=== PATIENT | female | born 1965 | race African-American/Black ===

== ENCOUNTER 2017-10-06 09:33 | Inpatient (IN) | payer BC, OTHER ==
[2017-10-06 10:00] VITALS: BMI 27.8
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
[2017-10-06] MEDS ORDERED: chlordiazePOXIDE HCL 25 MG CAPSULE PO PRN (12:28)
[2017-10-06] MEDS ORDERED: MAGNESIUM HYDROX 2400MG/30ML ORAL SUSPENSION 30 ML CUP PO PRN (12:28)
[2017-10-06] MEDS ORDERED: LOPERAMIDE HCL 2 MG CAPSULE PO PRN (12:28)
[2017-10-06] MEDS ORDERED: MENTHOL/PHENOL 1 EACH UD MM PRN (12:28)
[2017-10-06] MEDS ORDERED: guaiFENesin/D-METHORPHAN HB 10 ML UNIT-DOSE CUPS PO PRN (12:28)
[2017-10-06] MEDS ORDERED: hydrOXYzine PAMOATE 50 MG CAPSULE (FP) PO PRN (12:28)
[2017-10-06] MEDS ORDERED: P-EPHED 60MG/TRIPROLIDI 2.5MG TABLET PO PRN (12:28)
[2017-10-06] MEDS ORDERED: MAGNESIUM CITRATE 300 ML BOTTLE PO PRN (12:28)
[2017-10-06] MEDS ORDERED: MAG HYDROX/AL HYDROX/SIMETH 30 ML UNIT-DOSE CUP PO PRN (12:28)
[2017-10-06] MEDS ORDERED: chlordiazePOXIDE HCL 25 MG CAPSULE PO ONE (12:50)
[2017-10-06] MEDS: IBUPROFEN 400 MG TABLET (FP) PO PRN (14:01)
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
[2017-10-06] MEDS: chlordiazePOXIDE HCL 25 MG CAPSULE PO SCH ×2 (17:14→22:15)
[2017-10-06] MEDS: ACETAMINOPHEN 325 MG TABLET (FP) PO PRN (17:16)
[2017-10-06] MEDS: ALBUTEROL SO4 18 GM HFA INHALER IH PRN (20:47)
[2017-10-06] MEDS: THIAMINE HCL 100 MG TABLET (FP) PO SCH (22:14)
[2017-10-06] MEDS: ZOLPIDEM TARTRATE 5 MG TABLET PO PRN (22:15)
[2017-10-06 22:43] LABS: URINE APPEARANCE CLEAR; URINE BILIRUBIN NEGATIVE (NEGATIVE); URINE BLOOD 1+ (NEGATIVE); URINE COLOR YELLOW; URINE GLUCOSE (UA) NEGATIVE (NEGATIVE); URINE KETONE NEGATIVE (NEGATIVE); URINE LEUK ESTERASE NEGATIVE (NEGATIVE); URINE NITRITE NEGATIVE (NEGATIVE); URINE PROTEIN NEGATIVE (NEGATIVE); URINE UROBILINOGEN 4.0 E.U/dl mg/dL (0.2-1.0)
[2017-10-06 22:56] LABS: EPI CELLS RARE /HPF (FEW); URINE MUCUS RARE
[2017-10-07] MEDS: chlordiazePOXIDE HCL 25 MG CAPSULE PO SCH ×5 (05:43→23:16)
[2017-10-07] MEDS ORDERED: LEVOTHYROXINE NA 100 MCG TABLET (FP) ONE (05:43)
[2017-10-07] MEDS ORDERED: LEVOTHYROXINE NA 25 MCG TABLET (FP) ONE (05:43)
[2017-10-07] MEDS: IBUPROFEN 400 MG TABLET (FP) PO PRN (05:47)
[2017-10-07] MEDS: LEVOTHYROXINE 25 MCG, LEVOTHYROXINE 100 MCG PO SCH (06:38)
--- NOTE | 2017-10-07 08:37 | PN ---
S CIWA - CIWA Score Nausea/Vomitin-Mild Nausea/No Vomiting Muscle Tremors: 4-Moderate,w/Arms Extend Anxiety: 4-Mod. Anxious/Guarded Agitation: 4-Moderately Restless Paroxysmal Sweats: 1-Minimal Palms Moist Orientation: 0-Oriented Tacttile Disturbances: 2-Mild Itch/Numbness/Burn Auditory Disturbances: 0-None Visual Disturbances: 0-None Headache: 1-Very Mild CIWA-Ar Total Score: 17 BHS Progress Note (SOAP) Subjective: sweat gi distress tremor anxiety irritable Objective: 10/07/17 08:36 Vital Signs Temperature 95.9 F L 10/07/17 06:00 Pulse Rate 56 L 10/07/17 06:00 Respiratory Rate 18 10/07/17 06:00 Blood Pressure 128/72 10/07/17 06:00 O2 Sat by Pulse Oximetry (%) Laboratory Last Values Urine Color Yellow 10/06/17 20:00 Urine Appearance Clear 10/06/17 20:00 Urine pH 6.0 (5.0-8.0) 10/06/17 20:00 Ur Specific [place] 1.025 (1.001-1.035) 10/06/17 20:00 Urine Protein Negative (NEGATIVE) 10/06/17 20:00 Urine Glucose (UA) Negative (NEGATIVE) 10/06/17 20:00 Urine Ketones Negative (NEGATIVE) 10/06/17 20:00 Urine Blood 1+ (NEGATIVE) H 10/06/17 20:00 Urine Nitrite Negative (NEGATIVE) 10/06/17 20:00 Urine Bilirubin Negative (NEGATIVE) 10/06/17 20:00 Urine Urobilinogen 4.0 e.u/dl mg/dL (0.2-1.0) H 10/06/17 20:00 Ur Leukocyte Esterase Negative (NEGATIVE) 10/06/17 20:00 Urine WBC (Auto) 1 /hpf (3-5) 10/06/17 20:00 Urine RBC (Auto) 1 /hpf (0-3) 10/06/17 20:00 Ur Epithelial Cells Rare /HPF (FEW) 10/06/17 20:00 Urine Mucus Rare 10/06/17 20:00 lab noted Assessment: 10/07/17 08:36 withdrawal sx Plan: continue detox
[2017-10-07] MEDS: ESCITALOPRAM OXALATE 10 MG TABLET (FP) PO SCH (09:59)
[2017-10-07] MEDS ORDERED: LEVOTHYROXINE NA 125 MCG TABLET (FP) PO SCH (10:00)
[2017-10-07] MEDS ORDERED: PRENATAL VITAMINS W/ FOLIC ACID TABLET (FP) PO SCH (10:00)
[2017-10-07] MEDS: ACETAMINOPHEN 325 MG TABLET (FP) PO PRN (10:00)
[2017-10-07] MEDS ORDERED: MULTIVITAMINS THER W-MINERALS COMBO TABLET (FP) PO SCH (10:15)
[2017-10-07 10:22] LABS: HEMATOCRIT 32.4 % (32.4-45.2); HEMOGLOBIN 10.6 GM/dL (10.7-15.3); MCH 28.9 pg (25.7-33.7); MCHC 32.6 g/dl (32.0-36.0); MEAN CELL VOLUME 88.5 fl (80-96); MEAN PLT VOLUME 8.8 fl (7.5-11.1); PLATELET COUNT 295 K/MM3 (134-434); RBC 3.66 M/mm3 (3.60-5.2); WHITE BLOOD COUNT 5.6 K/mm3 (4.0-10.0)
[2017-10-07] MEDS: CALCIUM 250MG/VIT-D 125 UNITS 1 COMBO TABLET PO SCH (11:00)
[2017-10-07 11:02] LABS: CHLORIDE 106 mmol/L (98-107); POTASSIUM 5.2 mmol/L (3.5-5.1); SODIUM 142 mmol/L (136-145)
[2017-10-07 11:13] LABS: ALBUMIN 3.7 g/dl (3.4-5.0); ALK PHOS 59 U/L (45-117); ANION GAP 5 (8-16); BILIRUBIN,TOTAL 0.5 mg/dL (0.2-1.0); BLOOD UREA NITROGEN 19 mg/dL (7-18); CALCIUM 8.6 mg/dL (8.5-10.1); CO2 31 mmol/L (21-32); CREATININE 0.7 mg/dL (0.55-1.02); GLUCOSE,RANDOM 81 mg/dL (74-106); SGOT/AST 30 U/L (15-37); SGPT/ALT 29 U/L (12-78); TOT PROT 6.6 g/dl (6.4-8.2)
--- NOTE | 2017-10-07 11:44 | EKG ---
Test Reason : Blood Pressure : / mmHG Vent. Rate : 061 BPM Atrial Rate : 061 BPM P-R Int : 204 ms QRS Dur : 082 ms QT Int : 450 ms P-R-T Axes : 067 070 080 degrees QTc Int : 453 ms NORMAL SINUS RHYTHM NORMAL ECG NO PREVIOUS ECGS AVAILABLE Confirmed by VICTORINA SORTO, NORMA ([id number]) on 10/07/2017 11:44:23 AM Referred By: Confirmed By:NORMA PRAJAPATI MD
[2017-10-07] MEDS: THIAMINE HCL 100 MG TABLET (FP) PO SCH ×2 (23:00→23:16)
[2017-10-07] MEDS: ZOLPIDEM TARTRATE 5 MG TABLET PO PRN (23:18)
[2017-10-08] MEDS ORDERED: LEVOTHYROXINE NA 100 MCG TABLET (FP) ONE (04:21)
[2017-10-08] MEDS ORDERED: LEVOTHYROXINE NA 25 MCG TABLET (FP) ONE (04:21)
[2017-10-08] MEDS: chlordiazePOXIDE HCL 25 MG CAPSULE PO SCH ×2 (05:18→10:58)
[2017-10-08] MEDS: LEVOTHYROXINE 25 MCG, LEVOTHYROXINE 100 MCG PO SCH (07:54)
--- NOTE | 2017-10-08 09:58 | PN ---
[facility] CIWA - CIWA Score Nausea/Vomitin-No Nausea/No Vomiting Muscle Tremors: 3 Anxiety: 2 Agitation: 3 Paroxysmal Sweats: 3 Orientation: 0-Oriented Tacttile Disturbances: 0-None Auditory Disturbances: 0-None Visual Disturbances: 0-None Headache: 1-Very Mild CIWA-Ar Total Score: 12 S Progress Note (SOAP) Subjective: sweats irritable agitation Objective: 10/08/17 09:58 Vital Signs Temperature 96.4 F L 10/08/17 06:00 Pulse Rate 58 L 10/08/17 06:00 Respiratory Rate 18 10/08/17 06:00 Blood Pressure 126/71 10/08/17 06:00 O2 Sat by Pulse Oximetry (%) Laboratory Tests 10/06/17 10/06/17 10/07/17 12:00 20:00 06:00 WBC 5.6 RBC 3.66 Hgb 10.6 L Hct 32.4 MCV 88.5 MCH 28.9 MCHC 32.6 RDW 15.0 Plt Count 295 MPV 8.8 Sodium Potassium Chloride Carbon Dioxide Anion Gap BUN Creatinine Creat Clearance w eGFR Random Glucose Calcium Total Bilirubin AST ALT Alkaline Phosphatase Total Protein Albumin Urine Color Yellow Urine Appearance Clear Urine pH 6.0 Ur Specific [place] 1.025 Urine Protein Negative Urine Glucose (UA) Negative Urine Ketones Negative Urine Blood 1+ H Urine Nitrite Negative Urine Bilirubin Negative Urine Urobilinogen 4.0 e.u/dl H Ur Leukocyte Esterase Negative Urine WBC (Auto) 1 Urine RBC (Auto) 1 Ur Epithelial Cells Rare Urine Mucus Rare RPR Titer HIV 1&2 Antibody Screen Negative HIV P24 Antigen Negative 10/07/17 10/07/17 06:00 06:00 WBC RBC Hgb Hct MCV MCH MCHC RDW Plt Count MPV Sodium 142 Potassium 5.2 H Chloride 106 Carbon Dioxide 31 Anion Gap 5 L BUN 19 H Creatinine 0.7 Creat Clearance w eGFR > 60 Random Glucose 81 Calcium 8.6 Total Bilirubin 0.5 AST 30 ALT 29 Alkaline Phosphatase 59 Total Protein 6.6 Albumin 3.7 Urine Color Urine Appearance Urine pH Ur Specific [place] Urine Protein Urine Glucose (UA) Urine Ketones Urine Blood Urine Nitrite Urine Bilirubin Urine Urobilinogen Ur Leukocyte Esterase Urine WBC (Auto) Urine RBC (Auto) Ur Epithelial Cells Urine Mucus RPR Titer Nonreactive HIV 1&2 Antibody Screen HIV P24 Antigen aaox3 ambulating no acute distress Assessment: 10/08/17 09:58 withdrawal sx Plan: continue detox increase fluids
[2017-10-08] MEDS: ESCITALOPRAM OXALATE 10 MG TABLET (FP) PO SCH (10:58)
[2017-10-08] MEDS: CALCIUM 250MG/VIT-D 125 UNITS 1 COMBO TABLET PO SCH (10:58)
[2017-10-08] MEDS: MULTIVITAMINS THER W-MINERALS COMBO TABLET (FP) PO SCH (10:59)
[2017-10-08] MEDS: chlordiazePOXIDE 5 MG CAPSULE PO SCH ×2 (17:54→22:34)
[2017-10-08] MEDS: THIAMINE HCL 100 MG TABLET (FP) PO SCH (22:33)
[2017-10-08] MEDS: ALBUTEROL SO4 18 GM HFA INHALER IH PRN (22:33)
[2017-10-08] MEDS: ZOLPIDEM TARTRATE 5 MG TABLET PO PRN (22:34)
[2017-10-08] MEDS: IBUPROFEN 400 MG TABLET (FP) PO PRN (22:36)
[2017-10-09] MEDS: chlordiazePOXIDE 5 MG CAPSULE PO SCH ×2 (05:36→10:39)
[2017-10-09] MEDS ORDERED: LEVOTHYROXINE NA 100 MCG TABLET (FP) ONE (05:38)
[2017-10-09] MEDS ORDERED: LEVOTHYROXINE NA 25 MCG TABLET (FP) ONE (05:38)
[2017-10-09] MEDS: IBUPROFEN 400 MG TABLET (FP) PO PRN (05:39)
[2017-10-09] MEDS: LEVOTHYROXINE 25 MCG, LEVOTHYROXINE 100 MCG PO SCH (06:44)
[2017-10-09] MEDS: ESCITALOPRAM OXALATE 10 MG TABLET (FP) PO SCH (10:38)
[2017-10-09] MEDS: MULTIVITAMINS THER W-MINERALS COMBO TABLET (FP) PO SCH (10:39)
[2017-10-09] MEDS: CALCIUM 250MG/VIT-D 125 UNITS 1 COMBO TABLET PO SCH (10:40)
--- NOTE | 2017-10-09 14:21 | PN ---
S Progress Note (SOAP) Subjective: ALERT,IRRITABLE,ANXIOUS,INTERRUPTED SLEEP Objective: 10/09/17 14:19 Vital Signs Temperature 97.2 F L 10/09/17 07:06 Pulse Rate 55 L 10/09/17 07:06 Respiratory Rate 16 10/09/17 07:06 Blood Pressure 103/63 10/09/17 07:06 O2 Sat by Pulse Oximetry (%) Assessment: 10/09/17 14:20 WITHDRAWAL SYMPTOM Plan: WITHDRAWAL SYMPTOM,CONTINUE DETOX,DISCHARGE IN AM
[2017-10-09] MEDS ORDERED: FERROUS SO4 325 MG TABLET (FP) PO SCH (14:30)
[2017-10-09] MEDS: chlordiazePOXIDE HCL 10 MG CAPSULE PO SCH ×2 (17:57→22:39)
[2017-10-09 18:01] VITALS: BP 111/75; PULSE 58; TEMP 98.1
[2017-10-09] MEDS: THIAMINE HCL 100 MG TABLET (FP) PO SCH (22:39)
[2017-10-10] MEDS ORDERED: LEVOTHYROXINE NA 25 MCG TABLET (FP) ONE (03:38)
[2017-10-10] MEDS ORDERED: LEVOTHYROXINE NA 100 MCG TABLET (FP) ONE (03:38)
[2017-10-10] MEDS: chlordiazePOXIDE HCL 10 MG CAPSULE PO SCH (06:03)
[2017-10-10] MEDS: LEVOTHYROXINE 25 MCG, LEVOTHYROXINE 100 MCG PO SCH (06:03)
--- NOTE | 2017-10-10 09:04 | DS ---
[facility] Detox Discharge Summary Admission Date: 10/06/17 Discharge Date: 10/10/17 - History Present History: Alcohol Dependence - Physical Exam Results Vital Signs: Vital Signs Temperature 98.1 F 10/09/17 18:01 Pulse Rate 58 L 10/09/17 18:01 Respiratory Rate 18 10/10/17 00:30 Blood Pressure 111/75 10/09/17 18:01 O2 Sat by Pulse Oximetry (%) Pertinent Admission Physical Exam Findings: withdrawal sx Laboratory Last Values WBC 5.6 K/mm3 (4.0-10.0) 10/07/17 06:00 RBC 3.66 M/mm3 (3.60-5.2) 10/07/17 06:00 Hgb 10.6 GM/dL (10.7-15.3) L 10/07/17 06:00 Hct 32.4 % (32.4-45.2) 10/07/17 06:00 MCV 88.5 fl (80-96) 10/07/17 06:00 MCH 28.9 pg (25.7-33.7) 10/07/17 06:00 MCHC 32.6 g/dl (32.0-36.0) 10/07/17 06:00 RDW 15.0 % (11.6-15.6) 10/07/17 06:00 Plt Count 295 K/MM3 (134-434) 10/07/17 06:00 MPV 8.8 fl (7.5-11.1) 10/07/17 06:00 Sodium 142 mmol/L (136-145) 10/07/17 06:00 Potassium 5.2 mmol/L (3.5-5.1) H 10/07/17 06:00 Chloride 106 mmol/L (98-107) 10/07/17 06:00 Carbon Dioxide 31 mmol/L (21-32) 10/07/17 06:00 Anion Gap 5 (8-16) L 10/07/17 06:00 BUN 19 mg/dL (7-18) H 10/07/17 06:00 Creatinine 0.7 mg/dL (0.55-1.02) 10/07/17 06:00 Creat Clearance w eGFR > 60 (>60) 10/07/17 06:00 Random Glucose 81 mg/dL (74-106) 10/07/17 06:00 Calcium 8.6 mg/dL (8.5-10.1) 10/07/17 06:00 Total Bilirubin 0.5 mg/dL (0.2-1.0) 10/07/17 06:00 AST 30 U/L (15-37) 10/07/17 06:00 ALT 29 U/L (12-78) 10/07/17 06:00 Alkaline Phosphatase 59 U/L (45-117) 10/07/17 06:00 Total Protein 6.6 g/dl (6.4-8.2) 10/07/17 06:00 Albumin 3.7 g/dl (3.4-5.0) 10/07/17 06:00 Urine Color Yellow 10/06/17 20:00 Urine Appearance Clear 10/06/17 20:00 Urine pH 6.0 (5.0-8.0) 10/06/17 20:00 Ur Specific [place] 1.025 (1.001-1.035) 10/06/17 20:00 Urine Protein Negative (NEGATIVE) 10/06/17 20:00 Urine Glucose (UA) Negative (NEGATIVE) 10/06/17 20:00 Urine Ketones Negative (NEGATIVE) 10/06/17 20:00 Urine Blood 1+ (NEGATIVE) H 10/06/17 20:00 Urine Nitrite Negative (NEGATIVE) 10/06/17 20:00 Urine Bilirubin Negative (NEGATIVE) 10/06/17 20:00 Urine Urobilinogen 4.0 e.u/dl mg/dL (0.2-1.0) H 10/06/17 20:00 Ur Leukocyte Esterase Negative (NEGATIVE) 10/06/17 20:00 Urine WBC (Auto) 1 /hpf (3-5) 10/06/17 20:00 Urine RBC (Auto) 1 /hpf (0-3) 10/06/17 20:00 Ur Epithelial Cells Rare /HPF (FEW) 10/06/17 20:00 Urine Mucus Rare 10/06/17 20:00 RPR Titer Nonreactive (NONREACTIVE) 10/07/17 06:00 HIV 1&2 Antibody Screen Negative 10/06/17 12:00 HIV P24 Antigen Negative 10/06/17 12:00 lab noted - Treatment Hospital Course: Detox Protocol Followed, Detoxed Safely, Responded well, Discharged Condition Good, Rehab Referral Accepted Patient has Accepted a Rehab Referral to: [facility] - Medication Discharge Medications: Ambulatory Orders Albuterol Sulfate [Proair Hfa] 2 inh IH Q4H PRN 10/06/17 Calcium Carb, Citrate/Vit D3 [Calcium + D3 ER Tablet] 1 each PO DAILY 10/06/17 Escitalopram Oxalate [Lexapro -] 10 mg PO DAILY 10/06/17 Ibuprofen [Motrin -] 600 mg PO Q6H PRN 10/06/17 Levothyroxine Sodium [Levoxyl] 125 mcg PO DAILY 10/06/17 Mv-Mn/FA/Coq10/Lycopene/Lutein [Theragran-M Premier 50+ Caplet] 1 each PO DAILY 10/06/17 Albuterol Sulfate Inhaler - [Ventolin HFA Inhaler -] 2 puff IH Q4H PRN #1 inhaler 10/09/17 Ferrous Sulfate [Feosol] 325 mg PO DAILY #30 ud 10/09/17 Levothyroxine [Synthroid -] 125 mcg PO DAILY@0700 #30 tablet 10/09/17 - Diagnosis (1) Anxiety and depression Status: Suspected (2) Alcohol dependence with uncomplicated withdrawal Status: Acute (3) Asthma Status: Chronic Qualifiers: Asthma severity: mild Asthma persistence: intermittent Asthma complication type: with status asthmaticus Qualified Code(s): J45.22 - Mild intermittent asthma with status asthmaticus - AMA Did Patient Leave Against Medical Advice: No
== END 2017-10-10 07:08 | disposition home or self-care (01) | DRG 897 ==
LOC: YASAS 09:33 → Y6N 12:04
PROVIDERS: ADMIT Internal Medicine; ATTEND Internal Medicine
PROC: HZ2ZZZZ Detoxification Services for Substance Abuse Treatment (ICD-10-PCS; principal; 2017-10-06)
DX: F10.230 Alcohol dependence with withdrawal, uncomplicated (principal); F14.20 Cocaine dependence, uncomplicated; J45.22 Mild intermittent asthma with status asthmaticus; F12.20 Cannabis dependence, uncomplicated; F17.210 Nicotine dependence, cigarettes, uncomplicated; F19.24 Other psychoactive substance dependence with psychoactive substance-induced mood disorder; F41.8 Other specified anxiety disorders; F43.10 Post-traumatic stress disorder, unspecified; G47.00 Insomnia, unspecified; D64.9 Anemia, unspecified; R01.1 Cardiac murmur, unspecified; E89.0 Postprocedural hypothyroidism; Z85.850 Personal history of malignant neoplasm of thyroid; Z91.018 Allergy to other foods; Z87.898 Personal history of other specified conditions
CPT/HCPCS: 36415; 80053; 81003; 81015; 85027; 86593; 87389; 93005; 93010